=== PATIENT | male | born 1995 | race African-American/Black ===

== ENCOUNTER 2020-03-01 19:44 | Emergency (ER) | payer OTHER ==
[2020-03-02 08:38] LABS: SARS-CoV-2 MS2 Positive; SARS-CoV-2 N Gene Negative; SARS-CoV-2 S Gene Negative; SARS-CoV-2 by NAA Not Detected (NotDetected); SARS-CoV-2 orf1ab Negative
== END 2020-03-01 21:27 | disposition home or self-care (01) ==
LOC: ERS 19:44
DX: R51.9 Headache, unspecified (principal); R05 Cough; R09.81 Nasal congestion; F32.9 Major depressive disorder, single episode, unspecified; Z20.828 Contact with and (suspected) exposure to other viral communicable diseases
CPT/HCPCS: 87635; 99283; U0003

== ENCOUNTER 2020-07-24 18:33 | Inpatient (IN) | payer OTHER ==
[~2020-07-24 18:33] MED LIST: Iopamidol-370 76% 500 ML 1 ML ONE
[2020-07-24 19:31] LABS: #Basophils 0.1 thou/uL (0.0-0.2); #Eosinphils 0.3 thou/uL (0.0-0.7); #Lymphocytes 2.9 thou/uL (1.20-3.40); #Monocytes 0.5 thou/uL (0.11-0.59); #Neutrophils 4.2 thou/uL (1.40-6.50); %Basophils 0.7 % (0.0-1.0); %Eosinophils 3.3 % (0.0-10.0); %Lymphocytes 36.7 % (21.0-51.0); %Monocytes 6.5 % (0.0-10.0); %Neutrophils 52.8 % (42.0-75.0); Hemoglobin 15.3 g/dL (14.0-18.0); Mean Corpuscular HGB CONC 34.2 g/dL (32.0-36.0); Mean Corpuscular Hemoglobin 31.7 pg (27.0-31.0); Mean Corpuscular Volume 92.9 fL (78.0-98.0); Mean Platelet Volume 7.7 fL (7.4-10.4); Platelet Count 240 thou/uL (130-400); Red Blood Cell (RBC) Count 4.81 mill/uL (4.70-6.10)
[2020-07-24 19:52] LABS: Acetaminophen Less than 6.0 mcg/mL (10.0-30.0); Alcohol Less than 10 mg/dL (Less than 10); CK (CPK) 144 U/L (30-200); Salicylate Less than 8.0 mg/dL (15.0-30.0)
[2020-07-24 19:53] LABS: ALT (SGPT) 23 U/L (8-55); AST (SGOT) 22 U/L (5-34); Albumin 4.1 g/dL (3.5-5.0); Alkaline Phosphatase 70 U/L (40-110); Anion Gap 16 mmol/L (10-20); BUN (Urea Nitrogen) 10 mg/dL (8.9-20.6); Bilirubin, Total 0.6 mg/dL (0.2-1.2); Calc. Creatinine Clearance 0 mL/min (70-130); Calcium 9.2 mg/dL (7.8-10.44); Carbon Dioxide 22 mmol/L (22-29); Chloride 105 mmol/L (98-107); Globulin 3.3 g/dL (2.4-3.5); Glucose 99 mg/dL (70-105); Potassium 3.6 mmol/L (3.5-5.1); Protein, Total 7.4 g/dL (6.0-8.3); Sodium 139 mmol/L (136-145)
[2020-07-24 19:54] LABS: Bacteria/HPF None Seen HPF (None Seen); Bilirubin Negative (Negative); Blood, Urine 3+ (Negative); Clarity Clear (Clear); Glucose, Urine (Dipstick) Normal (Negative); Ketone, Urine Negative (Negative); Leukocyte Negative Leu/uL (Negative); Nitrite Negative (Negative); Protein, Urine (Dipstick) Negative (Neg-Trace); RBC/HPF Greater than 50 HPF (0-3); Specific Gravity, Urine 1.019 (1.002-1.036); Squamous Epithelial 0-3 HPF (0-3); Urobilinogen Normal mg/dL (Less than 2)
[2020-07-24 20:03] LABS: Amphetamine Not Detected (NotDetected); Barbiturates Screen Not Detected (NotDetected); Benzodiazepine Screen Not Detected (NotDetected); Cocaine Metabolite Screen Not Detected (NotDetected); Medtox Control Line Valid? VALID (VALID); Medtox Reader # READER 4; Methadone Not Detected (NotDetected); Methamphetamine Not Detected (NotDetected); Opiate Screen Not Detected (NotDetected); Oxycodone Screen Not Detected (NotDetected); Phencyclidine (PCP) Not Detected (NotDetected); THC/Cannabinoid Screen Detected (NotDetected); Tricyclic Screen Not Detected (NotDetected)
[2020-07-24] MEDS ORDERED: Haloperidol Lactate 5 MG/ML VIAL ONE (23:52)
[2020-07-25] MEDS ORDERED: Aspirin 300 MG Suppository ONE (02:07)
[2020-07-25] MEDS ORDERED: Aspirin Chewable 81 MG TAB ONE ×2 (02:11→09:04)
[2020-07-25] MEDS ORDERED: hydrALAZINE 20 MG/ML VIAL SLOW IVP PRN (02:31)
[2020-07-25] MEDS ORDERED: Labetalol HCl 100 MG/20 ML VIAL SLOW IVP PRN (02:31)
[2020-07-25] MEDS ORDERED: Acetaminophen 325 MG TAB PO PRN (02:35)
[2020-07-25] MEDS ORDERED: Ondansetron PF 4 MG/2 ML Vial IVP PRN (02:35)
[2020-07-25] MEDS ORDERED: Acetaminophen 650 MG Suppository PR PRN (02:35)
[2020-07-25] MEDS ORDERED: Ondansetron ODT 4 MG TAB PO PRN (02:35)
[2020-07-25] MEDS: D5 1/2 NS w/10 mEq KCl 1,000 ML/1,000 ML BAG IV SCH ×2 (04:45→17:20)
[2020-07-25 07:24] LABS: #Basophils 0.1 thou/uL (0.0-0.2); #Eosinphils 0.1 thou/uL (0.0-0.7); #Lymphocytes 2.9 thou/uL (1.20-3.40); #Monocytes 0.6 thou/uL (0.11-0.59); #Neutrophils 3.7 thou/uL (1.40-6.50); %Basophils 0.9 % (0.0-1.0); %Eosinophils 1.6 % (0.0-10.0); %Lymphocytes 38.8 % (21.0-51.0); %Monocytes 7.8 % (0.0-10.0); %Neutrophils 50.9 % (42.0-75.0); Hemoglobin 15.7 g/dL (14.0-18.0); Mean Corpuscular HGB CONC 33.3 g/dL (32.0-36.0); Mean Corpuscular Hemoglobin 30.8 pg (27.0-31.0); Mean Corpuscular Volume 92.5 fL (78.0-98.0); Mean Platelet Volume 7.8 fL (7.4-10.4); Platelet Count 237 thou/uL (130-400); RBC Distribution Width 11.2 % (11.5-14.5); Red Blood Cell (RBC) Count 5.08 mill/uL (4.70-6.10); White Blood Cell (WBC) Count 7.4 thou/uL (4.8-10.8)
[2020-07-25 07:37] LABS: Anion Gap 11 mmol/L (10-20); BUN (Urea Nitrogen) 7 mg/dL (8.9-20.6); Calc. Creatinine Clearance 0 mL/min (70-130); Calcium 9.3 mg/dL (7.8-10.44); Carbon Dioxide 24 mmol/L (22-29); Cardiac Risk 3.7 (Less than 4.5); Chloride 105 mmol/L (98-107); Cholesterol 152 mg/dl (< 200 Desired); Glucose 113 mg/dL (70-105); HDL Cholesterol 41 mg/dL (>60 Neg Risk); LDL Cholesterol, Calculated 89 mg/dL; Magnesium 2.1 mg/dL (1.6-2.6); Potassium 3.7 mmol/L (3.5-5.1); Sodium 136 mmol/L (136-145); Triglycerides 110 mg/dL (Less than 150)
[2020-07-25] MEDS ORDERED: Enoxaparin Sodium 40 MG/0.4 ML SYRINGE SC SCH (09:00)
[2020-07-25] MEDS ORDERED: Aspirin 300 MG Suppository PR SCH (09:00)
[2020-07-25 09:01] LABS: SARS-CoV-2 NAA Rapid Test Not Detected (NotDetected)
[2020-07-25 09:04] LABS: Thyroid Stimulating Hormone 1.1174 uIU/mL (0.35-4.94)
[2020-07-25] MEDS ORDERED: Famotidine/PF 20 mg/2ml Vial ONE (09:04)
[2020-07-25] MEDS ORDERED: Enoxaparin Sodium 40 MG/0.4 ML SYRINGE ONE (09:04)
[2020-07-25 09:06] LABS: Syphilis Antibody Nonreactive (Nonreactive); Syphilis Antibody Index 0.04 S/CO (<1.00 Non-Reactive)
[2020-07-25 09:16] LABS: Prothrombin Time 12.9 sec (12.0-14.7)
[2020-07-25 09:17] LABS: PTT 29.6 sec (22.9-36.1)
[2020-07-25] MEDS: Famotidine/PF 20 mg/2ml Vial SLOW IVP SCH ×2 (09:25→21:53)
[2020-07-25] MEDS: Enoxaparin Sodium 40 MG/0.4 ML SYRINGE SC SCH (09:25)
[2020-07-25] MEDS: Famotidine 20 MG TAB PO SCH ×2 (09:25→21:52)
[2020-07-25] MEDS ORDERED: Aspirin 325 MG TAB PO SCH (09:45)
[2020-07-25] MEDS ORDERED: Aspirin Chewable 81 MG TAB PO SCH (10:15)
[2020-07-25 16:21] VITALS: BMI 33.1
[2020-07-25 19:32] LABS: PTT 31.7 sec (22.9-36.1)
[2020-07-25 19:33] LABS: Prothrombin Time 13.4 sec (12.0-14.7)
[2020-07-25 19:34] LABS: D-Dimer Test 0.29 *mcg/mL (0.27-0.43)
[2020-07-25] MEDS ORDERED: Atorvastatin Calcium 40 MG TAB PO SCH (21:00)
[2020-07-26] MEDS: D5 1/2 NS w/10 mEq KCl 1,000 ML/1,000 ML BAG IV SCH ×2 (04:00→09:23)
[2020-07-26 05:16] LABS: Troponin I Less than 0.010 ng/mL (< 0.028)
[2020-07-26] MEDS ORDERED: Aspirin 325 MG TAB PO SCH (09:00)
[2020-07-26] MEDS: Famotidine 20 MG TAB PO SCH (09:15)
[2020-07-26] MEDS: Enoxaparin Sodium 40 MG/0.4 ML SYRINGE SC SCH (09:15)
[2020-07-26] MEDS: Famotidine/PF 20 mg/2ml Vial SLOW IVP SCH (09:23)
[2020-07-26 13:07] VITALS: BP 114/67; TEMP 98.4
[2020-07-26 16:29] LABS: Factor VIII Test 122.4 % ACTIVE (56-157)
[2020-07-26 17:09] LABS: Protein C Activity 82 % (78-152)
[2020-07-29 13:39] LABS: Cardiolipin IgA Ab 2.6 APL-U/mL (<14 Negative); Cardiolipin IgG Ab 1.2 GPL-U/mL (<10 Negative); Cardiolipin IgM Ab 1.5 MPL-U/mL (<10 Negative); EliA APS New Method **** NEW METHOD ****
[2020-07-29 14:47] LABS: HEX PHOS LA Tube 1 44.4 SEC; HEX PHOS LA Tube 2 43.5 SEC; Hexagonal Phospholipid Neut 0.9 SEC (0-8.0)
[2020-08-08 19:36] LABS: Activated Protein C Resistance 2.8 ratio (.)
== END 2020-07-26 13:48 | disposition home or self-care (01) | DRG 65 ==
LOC: ERS 18:33 → ERHOLD 07-25 01:55 → 2SE 07-25 02:09
PROVIDERS: ADMIT Student in an Organized Health Care Education/Training Program; ATTEND Internal Medicine
DX: I63.512 Cerebral infarction due to unspecified occlusion or stenosis of left middle cerebral artery (principal); G81.91 Hemiplegia, unspecified affecting right dominant side; F32.9 Major depressive disorder, single episode, unspecified; F43.10 Post-traumatic stress disorder, unspecified; R29.810 Facial weakness; F12.10 Cannabis abuse, uncomplicated; F41.9 Anxiety disorder, unspecified; I65.22 Occlusion and stenosis of left carotid artery; Z20.822 Contact with and (suspected) exposure to COVID-19
CPT/HCPCS: 0042T; 0240U; 36415; 51701; 70450; 70496; 70498; 70551; 71045; 80048; 80053; 80061; 80306; 80307; 81003; 81015; 82550; 82607; 82746; 83090; 83735; 84443; 84484; 85025; 85240; 85300; 85303; 85305; 85307; 85379; 85598; 85610; 85730; 86147; 86780; 93005; 93306; 96374; J1630; J1650; J3480; Q9967; S0028